=== PATIENT | female | born 2000 | race Caucasian/White ===

== ENCOUNTER 2024-04-12 20:07 | Emergency (ER) | payer OTHER, BC, SELFPAY ==
[2024-04-12 20:23] VITALS: BP 149/70
[2024-04-12 20:57] VITALS: BMI 26.6
--- NOTE | 2024-04-12 22:03 | ED.GENMED ---
History of Present Illness
General
Chief Complaint: Rabies
Time Seen by Provider: 04/12/24 21:18
History of Present Illness
History of Present Illness:
23-year-old female with history of asthma presenting for rabies vaccination. Patient was scratched and bit by a cat on March 22, found to be rabies positive today. Additionally was bit by a dog today on her right forearm. She reports that she has
never had the rabies vaccination. Denies fever. Denies any swelling to her extremity. Denies numbness or tingling. Denies additional acute medical complaint
Phy Exam
Physical Exam
Physical Exam:
General: Well-appearing, no clinical signs of dehydration, nontoxic and in no acute distress
HEENT: protecting airway
Neck: appears supple
CV: Normal heart rate
Resp: No accessory muscle use, no increased work of breathing
Abd: Nondistended
Extremities: No deformities, no swelling, small puncture wound to the medial forearm. Bleeding controlled. No erythema or warmth
Neuro: alert, no focal neurologic deficit
: deferred
Rectal: deferred
Psych: Normal affect
Skin: Intact
Course
Orders/Labs/Results
Orders:
Orders
04/12/24 21:26
Amoxicillin 875 mg/Clav 125 mg [Augmentin 875 mg/125 mg] 1 tablet PO NOW STA
04/12/24 21:36
Rabies Immune Globulin/Pf [HyperRAB] 1,452 unit IM NOW STA
04/12/24 21:45
Rabies Vaccine (Pcec)/Pf [Rabavert Rabies Vacc W-Diluent] 2.5 unit IM .ONCE ONE
Vital Signs
Initial and Last Documented VS:
Initial Vital Signs
Temp Pulse Resp BP Pulse Ox
98.3 F 73 20 149/70 99
04/12/24 20:23 04/12/24 20:23 04/12/24 20:23 04/12/24 20:23 04/12/24 20:23
Last Documented Vital Signs
Temp Pulse Resp BP Pulse Ox
98.3 F 73 20 149/70 99
04/12/24 20:23 04/12/24 20:23 04/12/24 20:23 04/12/24 20:23 04/12/24 20:23
MDM/Problems Addressed
MDM/Problems Addressed:
23-year-old female with history of asthma presenting for tetanus vaccination after being scratched and bit by a cat that was found to be rabies positive. Vital signs normal. On exam, patient nontoxic. 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
as a veterinary manager. There is a small puncture wound to her right upper extremity. Wound appears clean. No neurovascular compromise to the extremity. No indication for repair. Patient will require rabies vaccination series. Will also start on
Augmentin given recent dog bite. Otherwise feel stable for discharge. Return precautions discussed and patient verbalized understanding
*Critical Care Note
Total Time (30-74mins, 75-104mins- exclusive of procedures): Not Applicable
ED Attending Note
-
Portions of this chart may have been created with voice recognition software.� Occasional wrong word or��sound alike� substitutions may have occurred due to the inherent limitations of voice recognition software.
Discharge Plan
Departure
Patient Disposition: Home (Routine Discharge)
Date of Disposition: 04/12/24
Time of Disposition: 22:03
Patient with high blood pressure during this ER visit?: No
Condition: Good
Discharge Problem:
Need for prophylactic vaccination against rabies
Instructions: Animal Bites (DC), Rabies
Prescriptions:
New
amoxicillin-pot clavulanate 875-125 mg tablet
1 tab PO BID 7 Days Qty: 14 0RF
Referrals:
Mckenzie Otero NP [Family Provider] -
Stand Alone Forms: Rabies Vaccine Post Exp Dosing
Activity Restrictions/Additional Instructions:
Please follow-up in the emergency department on 04/15 for your second rabies vaccination. You will need to go to the infusion center for your third and fourth. Please bring your prescription.
Please follow-up closely with your primary care physician.
Return to the emergency department for any worsening of your symptoms, or any development of chest pain, difficulty breathing, abdominal pain with persistent vomiting and inability to tolerate food or liquid by mouth (concern for dehydration),
weakness, headache or confusion, fever greater than 100.4, or any additional symptoms that are concerning to you.
Thank you for choosing [facility].
Interventions
Interventions:
*Risk Screen - Suicide Last Done: 04/12/24 20:23
*General Assessment Last Done: 04/12/24 20:23
*Neglect/Abuse Screening Last Done: 04/12/24 20:23
ED- Fall Risk Assessment Last Done: 04/12/24 20:45
Discharge Date and Time
Print Language: BELARUSIAN
[2024-04-12] MEDS: HyperRAB 1452 UNIT IM (22:15)
[2024-04-12] MEDS: AUGMENTIN 875 MG/125 MG 1 TABLET PO (22:22)
[2024-04-12] MEDS: RABAVERT RABIES VACC W-DILUENT 2.5 UNIT IM (22:23)
== END 2024-04-12 23:06 | disposition home or self-care (01) ==
LOC: EMR 20:07
PROVIDERS: EMERGENCY PHYSICIAN Student in an Organized Health Care Education/Training Program; FAMILY PHYSICIAN Nurse Practitioner Family
DX: Z20.3 Contact with and (suspected) exposure to rabies (principal); Z23 Encounter for immunization; W55.01XA Bitten by cat, initial encounter; J45.909 Unspecified asthma, uncomplicated
CPT/HCPCS: 99284; 90471; 96372; 90375; 90675

== ENCOUNTER 2024-04-26 13:29 | Outpatient (RCR) | payer OTHER, SELFPAY ==
[2024-04-14 13:26] VITALS: BP 110/73
[2024-04-14] MEDS: RABAVERT RABIES VACC W-DILUENT 2.5 UNIT IM (13:41)
[2024-04-19 14:10] VITALS: BP 113/68
[2024-04-19] MEDS: RABAVERT RABIES VACC W-DILUENT 2.5 UNIT IM (14:18)
[2024-04-26 13:57] VITALS: BP 123/72
[2024-04-26] MEDS: RABAVERT RABIES VACC W-DILUENT 2.5 UNIT IM (14:04)
== END 2024-04-27 10:44 | disposition home or self-care (01) ==
LOC: OID 13:29
PROVIDERS: ATTENDING PHYSICIAN Student in an Organized Health Care Education/Training Program; FAMILY PHYSICIAN Nurse Practitioner Family
DX: Z20.3 Contact with and (suspected) exposure to rabies (principal); Z23 Encounter for immunization
CPT/HCPCS: 90471; 90675